=== PATIENT | female | born 1990 | race African-American/Black ===

== ENCOUNTER 2016-10-07 23:56 | Emergency (ER) | payer MEDICAID ==
[~2016-10-07] VITALS: Ht 160 cm; Wt 90.0 kg
[~2016-10-07 23:56] MED LIST: ADVAI100I PO; DEPO400I IM; IBUP600 PO; MONT4CHW2 CHEW; WAL-10TA2 PO
[2016-10-07 23:58] VITALS: BP 105/57; PULSE 120; RESP 16; TEMP 103.2; O2SAT 98
[2016-10-08 00:59] VITALS: BP 95/50; PULSE 105; RESP 16; O2SAT 98
[2016-10-08] MEDS ORDERED: SODIUM CHLOR 0.9% 1000 ML INJ 1,000 ML IV SCH (01:10)
[2016-10-08 01:15] VITALS: TEMP 100
[2016-10-08] MEDS ORDERED: KETOROLAC TROMETHAMINE 30 MG/ML (IVP) VIAL IVP ONE (01:15)
[2016-10-08] MEDS ORDERED: MORPHINE SULFATE 4 MG/ML INJ IV PUSH ONE ×2 (01:15→05:00)
[2016-10-08] MEDS ORDERED: SODIUM CHLORIDE 0.9% FLUSH 10 ML FLUSH IV FLUSH PRN (01:15)
[2016-10-08] MEDS ORDERED: ONDANSETRON HCL 4 MG/2 ML VIAL IVP ONE (01:15)
[2016-10-08 01:20] VITALS: RESP 18; O2SAT 99
--- NOTE | 2016-10-08 01:41 | PD ---
HPI . abdominal pain Chief Complaint: Abdominal Pain Time Seen by Provider: 00:52 Travel History International Travel<30 days: No Contact w/Intl Traveler<30days: No Traveled to known affect area: No History of Present Illness HPI 26 year old G0 female LMP 10/03/16 presents to the ED complaining of abdominal pain. Pain is located in the right lower quadrant and radiates to her right back. Describes the pain as sharp and constant. Rates the pain as a 9/10. Onset was earlier tonight, she is unsure exactly how many hours it has been. She tried some ibuprofen with no relief. She has had similar episodes in the past, however, she has never had the associated back pain like she is having tonight. Reports to 2 episodes of emesis. Denies any current nausea. Also denies any chest pain, shortness of breath, dysuria, diarrhea, constipation, or vaginal discharge. She reports chills and urinary frequency. She is unsure if she could be and is not on any form of contraception. PFSH Past Medical History Asthma: Yes Diminished Hearing: No ?: Unknown LMP: 10/03/16 : 0 Para: 0 Past Surgical History Surgical History: No Previous Surgery Eye Surgery: Yes (right) Social History Alcohol Use: Yes (WEEKENDS) Tobacco Use: Yes (1/2 PPD) Substance Use: No Allergies-Medications (Allergen,Severity, Reaction): Coded Allergies: No Known Allergies (Verified , 10/08/16) Reported Meds & Prescriptions Reported Meds & Active Scripts Active No Active Prescriptions or Reported Medications Review of Systems General / Constitutional: Positive: Fever, Chills HENT: No: Headaches Cardiovascular: No: Chest Pain or Discomfort Respiratory: No: Shortness of Breath Gastrointestinal: Positive: Abdominal Pain, No: Nausea, Diarrhea, Constipation Genitourinary: Positive: Frequency, No: Dysuria Skin: No Rash Physical Exam Narrative GENERAL: Awake and alert female appearing stated age in no acute distress. SKIN: Focused skin assessment warm/dry. HEAD: Atraumatic. Normocephalic. EYES: Pupils equal and round. No scleral icterus. No injection or drainage. ENT: No nasal bleeding or discharge. Mucous membranes pink and moist. NECK: Trachea midline. Neck supple. No lymphadenopathy. CARDIOVASCULAR: Regular rate and rhythm. No murmur appreciated. RESPIRATORY: No accessory muscle use. Clear to auscultation. Breath sounds equal bilaterally. GASTROINTESTINAL: Abdomen soft, nondistended. Right lower quadrant tenderness. GENITOURINARY: CVA tenderness on the right side. MUSCULOSKELETAL: No obvious deformities. No clubbing. No cyanosis. No edema. NEUROLOGICAL: Awake and alert. No obvious cranial nerve deficits. Motor grossly within normal limits. Normal speech. PSYCHIATRIC: Appropriate mood and affect; insight and judgment normal. Data Data Last Documented VS Vital Signs Date Time Temp Pulse Resp B/P Pulse Ox O2 Delivery O2 Flow Rate FiO2 10/08/16 01:20 18 99 Room Air 10/08/16 01:15 100.0 10/08/16 00:59 105 95/50 Orders Complete Blood Count With Diff (10/08/16 01:10) Comprehensive Metabolic Panel (10/08/16 01:10) Lipase (10/08/16 01:10) Urinalysis - C+S If Indicated (10/08/16 01:10) Iv Access Insert/Monitor (10/08/16 01:10) Ecg Monitoring (10/08/16 01:10) Oximetry (10/08/16 01:10) Morphine Inj (Morphine Inj) (10/08/16 01:15) Ondansetron Inj (Zofran Inj) (10/08/16 01:15) Sodium Chlor 0.9% 1000 Ml Inj (Ns 1000 M (10/08/16 01:10) Sodium Chloride 0.9% Flush (Ns Flush) (10/08/16 01:15) Ketorolac Inj (Toradol Inj) (10/08/16 01:15) Ed Urine Pregnancytest Poc (10/08/16 01:10) Ct Abd/Pel W/O Iv Contrast (10/08/16 ) Sodium Chlor 0.9% 1000 Ml Inj (Ns 1000 M (10/08/16 02:45) Urine Culture (10/08/16 04:00) Ceftriaxone Inj (Rocephin Inj) (10/08/16 05:00) Morphine Inj (Morphine Inj) (10/08/16 05:00) Labs Laboratory Tests Test 10/08/16 10/08/16 01:25 04:00 White Blood Count 16.6 TH/MM3 Red Blood Count 4.23 MIL/MM3 Hemoglobin 11.7 GM/DL Hematocrit 34.3 % Mean Corpuscular Volume 81.2 FL Mean Corpuscular Hemoglobin 27.8 PG Mean Corpuscular Hemoglobin 34.2 % Concent Red Cell Distribution Width 14.9 % Platelet Count 252 TH/MM3 Mean Platelet Volume 7.4 FL Neutrophils (%) (Auto) 87.7 % Lymphocytes (%) (Auto) 5.9 % Monocytes (%) (Auto) 5.6 % Eosinophils (%) (Auto) 0.6 % Basophils (%) (Auto) 0.2 % Neutrophils # (Auto) 14.5 TH/MM3 Lymphocytes # (Auto) 1.0 TH/MM3 Monocytes # (Auto) 0.9 TH/MM3 Eosinophils # (Auto) 0.1 TH/MM3 Basophils # (Auto) 0.0 TH/MM3 CBC Comment DIFF FINAL Differential Comment Sodium Level 142 MEQ/L Potassium Level 4.3 MEQ/L Chloride Level 109 MEQ/L Carbon Dioxide Level 25.3 MEQ/L Anion Gap 8 MEQ/L Blood Urea Nitrogen 8 MG/DL Creatinine 1.23 MG/DL Estimat Glomerular Filtration 64 ML/MIN Rate Random Glucose 107 MG/DL Calcium Level 8.6 MG/DL Total Bilirubin 0.4 MG/DL Aspartate Amino Transf 33 U/L (AST/SGOT) Alanine Aminotransferase 32 U/L (ALT/SGPT) Alkaline Phosphatase 73 U/L Total Protein 7.0 GM/DL Albumin 3.1 GM/DL Lipase 87 U/L Urine Color YELLOW Urine Turbidity CLEAR Urine pH 7.0 Urine Specific Inez 1.011 Urine Protein NEG mg/dL Urine Glucose (UA) NEG mg/dL Urine Ketones NEG mg/dL Urine Occult Blood SMALL Urine Nitrite NEG Urine Bilirubin NEG Urine Urobilinogen 1.0 MG/DL Urine Leukocyte Esterase MOD Urine RBC 5 /hpf Urine WBC 62 /hpf Urine WBC Clumps RARE Urine Squamous Epithelial 1 /hpf Cells Urine Transitional Epithelial <1 /hpf Cells Urine Renal Epithelial Cells <1 /hpf Urine Bacteria OCC /hpf Urine Mucus FEW /lpf Microscopic Urinalysis Comment CULTURE INDICATED MDM Medical Decision Making Medical Screen Exam Complete: Yes Emergency Medical Condition: Yes Interpretation(s) Laboratory Tests Test 10/08/16 10/08/16 01:25 04:00 White Blood Count 16.6 TH/MM3 Red Blood Count 4.23 MIL/MM3 Hemoglobin 11.7 GM/DL Hematocrit 34.3 % Mean Corpuscular Volume 81.2 FL Mean Corpuscular Hemoglobin 27.8 PG Mean Corpuscular Hemoglobin 34.2 % Concent Red Cell Distribution Width 14.9 % Platelet Count 252 TH/MM3 Mean Platelet Volume 7.4 FL Neutrophils (%) (Auto) 87.7 % Lymphocytes (%) (Auto) 5.9 % Monocytes (%) (Auto) 5.6 % Eosinophils (%) (Auto) 0.6 % Basophils (%) (Auto) 0.2 % Neutrophils # (Auto) 14.5 TH/MM3 Lymphocytes # (Auto) 1.0 TH/MM3 Monocytes # (Auto) 0.9 TH/MM3 Eosinophils # (Auto) 0.1 TH/MM3 Basophils # (Auto) 0.0 TH/MM3 CBC Comment DIFF FINAL Differential Comment Sodium Level 142 MEQ/L Potassium Level 4.3 MEQ/L Chloride Level 109 MEQ/L Carbon Dioxide Level 25.3 MEQ/L Anion Gap 8 MEQ/L Blood Urea Nitrogen 8 MG/DL Creatinine 1.23 MG/DL Estimat Glomerular Filtration 64 ML/MIN Rate Random Glucose 107 MG/DL Calcium Level 8.6 MG/DL Total Bilirubin 0.4 MG/DL Aspartate Amino Transf 33 U/L (AST/SGOT) Alanine Aminotransferase 32 U/L (ALT/SGPT) Alkaline Phosphatase 73 U/L Total Protein 7.0 GM/DL Albumin 3.1 GM/DL Lipase 87 U/L Urine Color YELLOW Urine Turbidity CLEAR Urine pH 7.0 Urine Specific Inez 1.011 Urine Protein NEG mg/dL Urine Glucose (UA) NEG mg/dL Urine Ketones NEG mg/dL Urine Occult Blood SMALL Urine Nitrite NEG Urine Bilirubin NEG Urine Urobilinogen 1.0 MG/DL Urine Leukocyte Esterase MOD Urine RBC 5 /hpf Urine WBC 62 /hpf Urine WBC Clumps RARE Urine Squamous Epithelial 1 /hpf Cells Urine Transitional Epithelial <1 /hpf Cells Urine Renal Epithelial Cells <1 /hpf Urine Bacteria OCC /hpf Urine Mucus FEW /lpf Microscopic Urinalysis Comment CULTURE INDICATED Last Impressions Abdomen/Pelvis CT 10/08/16 0000 Signed Impressions: Service Date/Time: Saturday, October 08, 2016 02:12 - CONCLUSION: No abnormality is identified to explain the clinical symptoms on this noncontrast examination. The appendix is not visualized but no acute finding is identified. Miguel Angel Naranjo MD Differential Diagnosis Differentials include appendicitis, ovarian cyst, UTI, constipation, cholecystitis, biliary colic, nephrolithiasis. Narrative Course Patient presents with right lower quadrant pain that started this evening. She is febrile and tachycardic. IV access was obtained and patient was placed on cardiac monitoring and continuos pulse oximetry. Urine test was negative. IV fluids, zofran, toradol, and morphine was given. Labs and CT abdomen were ordered. CT was negative for appendicitis, it was not visualized, but there was no inflammatory changes noted. UA had 62 WBCs, patient appears to have pyelonephritis. The patient was administered Rocephin 1 g intravenously and will be discharged home on Bactrim twice a day. She is advised to follow-up with her primary physician. Return if symptoms worsen or progress. Diagnosis Primary Impression: Pyelonephritis Patient Instructions: General Instructions Additional Instructions: Medications as directed. Follow-up with your primary physician. Return if symptoms worsen or progress. Med/Other Pt SpecificInfo: Prescription(s) given Scripts Sulfamethoxazole-Trimethoprim (Bactrim DS)800-160 Mg Tab1 Tab PO BID #14 TAB Ref 0 Prov:Ashwin Parra MD 10/08/16 Disposition: DISCHARGE HOME Condition: Stable Ashwin Parra MD Oct 08, 2016 01:41
[2016-10-08 01:58] LABS: AUTOMATED NEUTROPHIL # 14.5 TH/MM3 (1.8-7.7); BASOPHIL % 0.2 % (0.0-2.0); EOSINOPHIL # 0.1 TH/MM3 (0-0.4); EOSINOPHIL % 0.6 % (0.0-4.0); HEMATOCRIT 34.3 % (35.0-46.0); HEMO FLAGS DIFF FINAL; LYMPH % 5.9 % (9.0-44.0); MEAN CELL VOLUME 81.2 FL (80.0-100.0); MEAN CORPUSCULAR HEMOGLOBIN 27.8 PG (27.0-34.0); MEAN CORPUSCULAR HGB CONC 34.2 % (32.0-36.0); MONO % 5.6 % (0.0-8.0); NEUT % 87.7 % (16.0-70.0); PLATELET COUNT 252 TH/MM3 (150-450); RED BLOOD COUNT 4.23 MIL/MM3 (4.00-5.30); RED CELL DISTRIBUTION WIDTH 14.9 % (11.6-17.2); WHITE BLOOD COUNT 16.6 TH/MM3 (4.0-11.0)
[2016-10-08 02:05] LABS: ALKALINE PHOSPHATASE 73 U/L (45-117); TOTAL BILIRUBIN ADULT 0.4 MG/DL (0.2-1.0)
[2016-10-08 02:09] LABS: ALT (GPT) 32 U/L (10-53); ANION GAP 8 MEQ/L (5-15); AST (GOT) 33 U/L (15-37); BICARBONATE 25.3 MEQ/L (21.0-32.0); BLOOD UREA NITROGEN 8 MG/DL (7-18); CHLORIDE 109 MEQ/L (98-107); GLOMERULAR FILTRATION RATE 64 ML/MIN (>89); POTASSIUM 4.3 MEQ/L (3.5-5.1); SODIUM (NA) 142 MEQ/L (136-145)
--- NOTE | 2016-10-08 02:30 | RADRPT ---
EXAM DATE/TIME: 10/08/2016 02:12 [facility] COMPARISON: CT ABDOMEN & PELVIS W CONTRAST, February 21, 2015, 18:04. INDICATIONS : Right lower quadrant pain with fever. ORAL CONTRAST: No oral contrast ingested. RADIATION DOSE: 13.45 CTDIvol (mGy) MEDICAL HISTORY : None SURGICAL HISTORY : None. ENCOUNTER: Initial ACUITY: 1 day PAIN SCALE: 10/10 LOCATION: Right lower quadrant TECHNIQUE: Volumetric scanning of the abdomen and pelvis was performed. Using automated exposure control and ad justment of the mA and/or kV according to patient size, radiation dose was kept as low as reasonably achievable to obtain optimal diagnostic quality images. DICOM format image data is available electro nically for review and comparison. FINDINGS: LOWER LUNGS: The visualized lower lungs are clear. LIVER: Homogeneous density without lesion. There is no dilation of the biliary tree. No calcified gallston es. SPLEEN: Normal size without lesion. PANCREAS: Within normal limits. KIDNEYS: Normal in size and shape. There is no mass, stone, or hydronephrosis. ADRENAL GLANDS: Within normal limits. VASCULAR: There is no aortic aneurysm. BOWEL/MESENTERY: The stomach, small bowel, and colon demonstrate no acute abnormality. There is no free intraperitone al air or fluid. The appendix is not visualized. Ileocolic lymph nodes are stable. ABDOMINAL WALL: Within normal limits. RETROPERITONEUM: There is no lymphadenopathy. BLADDER: No wall thickening or mass. REPRODUCTIVE: Within normal limits. INGUINAL: There is no lymphadenopathy or hernia. MUSCULOSKELETAL: No acute abnormality is identified. CONCLUSION: No abnormality is identified to explain the clinical symptoms on this noncontrast examination. The ap pendix is not visualized but no acute finding is identified. Miguel Angel Naranjo MD on October 08, 2016 at 2:25 Board Certified Radiologist. This report was verified electronically.
[2016-10-08] MEDS ORDERED: SODIUM CHLOR 0.9% 1000 ML INJ 1,000 ML IV ONE (02:45)
[2016-10-08 04:37] LABS: BLOOD, URINE SMALL (NEG); GLUCOSE,URINE NEG (NEG); KETONE, URINE NEG (NEG); NITRITE,URINE NEG (NEG); URINE COLOR YELLOW (YELLW/STRAW)
[2016-10-08 04:38] LABS: BACTERIA, URINE OCC /hpf; COMMENT (UR) CULTURE INDICATED; CULTURE IF INDICATED CULTURE INDICATED; MUCUS URINE FEW /lpf (OCC); RENAL EPITHELIAL CELLS <1 /hpf; SQUAMOUS EPITHELIAL CELL URINE 1 /hpf (0-5); TRANSITIONAL EPI CELLS, URINE <1 /hpf
[2016-10-08] MEDS ORDERED: cefTRIAXone INJ 1,000 MG in SODIUM CHLORIDE 0.9% INJ 100 ML IV ONE (05:00)
[2016-10-08] MEDS ORDERED: BACT800T5 PO (05:02)
== END 2016-10-08 07:00 | disposition home or self-care (01) ==
LOC: NEPC 23:56
DX: N12 Tubulo-interstitial nephritis, not specified as acute or chronic (principal); A49.8 Other bacterial infections of unspecified site; R00.0 Tachycardia, unspecified; J45.909 Unspecified asthma, uncomplicated; F17.200 Nicotine dependence, unspecified, uncomplicated
CPT/HCPCS: 74176; 80053; 81001; 83690; 84703; 85025; 87077; 87086; 87186; 96361; 96374; 96375; 99285; J0696; J1885; J2270; J2405; J7030